=== PATIENT | male | born 1995 ===

== ENCOUNTER 2021-09-22 16:33 | Emergency (ER) ==
[2021-09-22] MEDS ORDERED: HYDROcodone/Acetaminophen 5/325 mg Tablet ONE (17:03)
== END 2021-09-22 18:55 | disposition home or self-care (01) ==
LOC: ERS 16:33
DX: S82.62XA Displaced fracture of lateral malleolus of left fibula, initial encounter for closed fracture (principal); F17.210 Nicotine dependence, cigarettes, uncomplicated; X58.XXXA Exposure to other specified factors, initial encounter
CPT/HCPCS: 27808